=== PATIENT | female | born 1955 | race Caucasian/White ===

== ENCOUNTER 2016-10-20 04:26 | Observation (INO) | payer BC ==
--- NOTE | ~2016-10-20 | HP ---
History And Physical [place] [id number] [facility] [place]. [address] NAME: BRIAN RAJAN : 55 STATUS : ADM [place] PAT#: [id number] AGE: 61 ADM/REG DATE : 10/20/16 MR#: [id number] REPORT SERV DATE: 10/20/16 DICTATED BY: BAIRON RIVERA DATE: 10/20/16 REPORT STATUS : Draft TRANSCRIBED BY: MODRahat DATE: 10/20/16 DATE OF ADMISSION: 10/20/2016 CHIEF COMPLAINT: Unable to swallow. HISTORY OF PRESENT ILLNESS: The patient is a 61-year-old white female, relatively healthy, presented to [facility]'s emergency room early this morning where CT scan revealed some compromise of her airway due to significant edema of the oropharynx, so she was back to be admitted to ICU. Dr. Wayne saw the patient in consultation and Dr. Camp of ENT saw the patient and performed endoscopy. She was given some IV Solu-Medrol in the emergency room and then when Dr. Camp saw her, the airway compromise was not as bad as it looked on the CT scan, so she has been referred for further observation. This patient reported that over the last three to four days, she has had significant sore throat. She went to see her primary care physician, saw the nurse practitioner there, and said this was viral. She was given some cough drops and asked to take Tylenol and ibuprofen. Then, she got worse in the next two days and so, she saw the physician's nurse practitioner at her workplace and they said it was viral. Strep throat was done during that time and it was negative, but her symptoms continued to worsen where she could not swallow, so she came to the emergency room. REVIEW OF SYSTEMS: Otherwise has been negative. PAST MEDICAL HISTORY: Significant for ulcerative colitis, followed by Dr. Richie Boss, currently in remission. PAST SURGICAL HISTORY: Unremarkable. ALLERGIES: NO KNOWN DRUG ALLERGIES. HOME MEDICATIONS: None prior to this admission. SOCIAL HISTORY: She does not smoke. Occasionally drinks alcohol, red wine. Does not use any illicit substances. Employed at [employer]. FAMILY HISTORY: Significant for ulcerative colitis, diabetes, and heart disease in the family. PHYSICAL EXAMINATION: GENERAL: White female, lying on a gurney, appears to be in no obvious respiratory distress. She is awake, alert. She is oriented. VITAL SIGNS: Blood pressure is 170/90, which has since improved after coming to the emergency room. Temperature is 98.7, pulse 104, which has since improved as well. Saturation 96%. HEENT: Head is normocephalic, atraumatic. Pupils are equal, round, and reactive to light. Extraocular muscles are intact. Sclerae anicteric. Conjunctivae normal. Oropharynx without lesion. Tongue protrusion midline. Uvula midline. History And Physical [address] [address] NAME: BRIAN RAJAN : 55 STATUS : ADM [place] PAT#: [id number] AGE: 61 ADM/REG DATE : 10/20/16 MR#: [id number] REPORT SERV DATE: 10/20/16 DICTATED BY: BAIRON RIVERA DATE: 10/20/16 REPORT STATUS : Draft TRANSCRIBED BY: DAVIS DATE: 10/20/16 NECK: Supple. No jugular venous distention. No carotid bruits or thyromegaly is appreciated. She is tender to palpation over the neck area. No lymphadenopathy in the neck is palpable. HEART: Regular rate and rhythm. No murmurs, rubs, or gallops are heard. PMI nondisplaced. LUNGS: Clear to auscultation, both anteriorly and posteriorly, without rales, rhonchi, wheezing, or consolidation. Mild stridor type of noises over the oropharynx. ABDOMEN: Soft, nontender, good bowel sounds. No rebound or guarding. No organomegaly. EXTREMITIES: Without cyanosis, clubbing, or edema. MUSCULOSKELETAL: Normal. NEUROLOGIC: Normal. LABORATORY DATA: Sodium is 142, potassium 3.4, chloride 104, bicarb 26, BUN 9, creatinine 0.65, glucose of 93. Liver function studies are completely normal. Total albumin and total protein are normal. CBC: White count is 14.2, hemoglobin of 14.1, hematocrit of 42, platelet count is 417,000. No bandemia. DIAGNOSTIC DATA: CT of the neck without contrast, asymmetric swelling localized in the region of the left tonsil, this may represent infection, tumor cannot be excluded. Recommend either repeat CT or MRI for further evaluation. IMPRESSION: 1. Severe oropharyngitis with swallowing difficulty. 2. Ulcerative colitis. Currently in remission. PLAN: The patient will be admitted for observation. This patient has already been seen by Dr. Camp and a pharyngoscope has been done. She has been given IV Solu-Medrol, which we will continue. 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 We will check routine labs. Follow up with Dr. Camp at discharge in 7-10 days. ALIZE/DAVIS Bairon Rivera M.D. / [id number] CC: MD Irving Stahl M.D.
--- NOTE | ~2016-10-20 | CN ---
Consultation Report [facility] [address] [place]. [address] NAME: BRIAN RAJAN : 55 STATUS : ADM [place] PAT#: [id number] AGE: 61 ADM/REG DATE : 10/20/16 MR#: [id number] REPORT SERV DATE: 10/20/16 DICTATED BY: LORETTA HUGHES DATE: 10/20/16 REPORT STATUS : Draft TRANSCRIBED BY: MODL DATE: 10/20/16 CONSULTATION DATE OF CONSULTATION: 10/20/2016 SERVICE: Otolaryngology. DIAGNOSIS: Airway narrowing stridor. HISTORY OF PRESENT ILLNESS: This is a 61-year-old female, who early in the week presented to her primary care doctor with increasing sore throat, had been swabbed several times, was told she had a viral illness, was not treated. She went reportedly again and was swabbed three days in a row. Per the patient, never turned up positive for strep. She got progressively worse until last night. She was unable to swallow water pills. Came to the emergency room. During her workup there, she was found to have a very narrowed airway due to soft tissue swelling of the oropharynx. I was consulted for evaluation and management. She does report that she had fevers over the past week as well. She does not have any history of tonsillectomy. No history of recurrent strep tonsillitis. PAST MEDICAL HISTORY: She has none. PAST SURGICAL HISTORY: She had a lymph node excised by Dr. Michael Mcdonough. She says approximately 20 years ago and it was a benign diagnosis. She is not currently taking any medications and has no known drug allergies. Reviewing the labs, she had a white count of 12 which is the most notable lab. I reviewed the images of her CT scan, which showed a gross swelling of the oropharynx in a circumferential fashion. The CT scan was not contrasted, but there was not felt to be any type of fluid collection which I agree with. PHYSICAL EXAMINATION: GENERAL: The patient was sleeping in the supine position. Had no stridor. She was wearing a nasal cannula. She was in no distress. When I turned the light on and woke her, she was fully appropriate and aware and not having any difficulty speaking or swallowing. HEENT: On physical examination of her ears, auditory canals, and tympanic membranes, she did have a slight serous effusion in the right ear, otherwise normal exam. No external nasal deformities internally. Septum and turbinates are normal. Oral cavity was pink and moist. There were no lesions on the buccal mucosa, floor of mouth, or oral tongue. There was no edema in the floor of mouth. There was erythema in the posterior pharynx and appeared to be white. Whitish drainage around the tonsil area. Palpation of the face was soft. Palpation of the neck was soft. There was no abnormal lymphadenopathy present. The thyroid gland was nontender. Consultation Report [facility] [address] [place]. [address] NAME: BRIAN RAJAN : 55 STATUS : ADM [place] PAT#: [id number] AGE: 61 ADM/REG DATE : 10/20/16 MR#: [id number] REPORT SERV DATE: 10/20/16 DICTATED BY: LORETTA HUGHES DATE: 10/20/16 REPORT STATUS : Draft TRANSCRIBED BY: DAVIS DATE: 10/20/16 PROCEDURE NOTE: After witnessed informed consent was obtained, the patient's left nasal cavity was cannulated with a soft flexible fiberoptic scope that was coated in lidocaine jelly. It was passed easily back to the nasopharynx. Along way, there was quite a bit of drainage coming from the sinuses. It was yellow-green in nature. The drainage continued onto the back of the throat. The patient had grossly erythematous and swollen tonsils. Lingual tonsils were slightly enlarged. She had a widely patent oropharynx. Her larynx appeared uninvolved. She had good adduction and abduction of her vocal cords. She tolerated the procedure well. There were no complications. ASSESSMENT: Acute pharyngitis. Given the severity of her initial presentation, I think it is prudent to have her on IV Unasyn for 24 hours. She continues to markedly improve on Unasyn and steroids. RECOMMENDATION: We will have her discharged home in the morning on a total of a 10-day course of Augmentin. I do not see any need for surgical intervention. I do not believe she needs intensive care unit observation at this time since she has rapidly improved with her IV steroids. Outpatient followup would be considered with me in 7-10 days after discharge. GUILLAUME/DAVIS Loretta Hughes MD / [id number] CC: MD Irving Stahl M.D.
--- NOTE | ~2016-10-20 | DS ---
Discharge Summary [facility] [address] [place] [address] NAME: BRIAN RAJAN : 55 STATUS : ADM [place] PAT#: [id number] AGE: 61 ADM/REG DATE : 10/20/16 MR#: [id number] REPORT SERV DATE: 10/21/16 DICTATED BY: Dione LOPEZ DATE: 10/21/16 REPORT STATUS : Draft TRANSCRIBED BY: DAVIS DATE: 10/21/16 ADMISSION DATE: 10/20/2016 DISCHARGE DATE: 10/21/2016 DIAGNOSIS AT DISCHARGE: Acute pharyngitis. CONSULT: Dr. Camp, ENT. PROCEDURE: Nasopharyngoscopy. BRIEF HOSPITAL COURSE: A 61-year-old female, who admitted with severe oropharyngeal swelling secondary to acute pharyngitis, started on IV antibiotics and IV steroids with a consult to ENT. The patient did have a nasopharyngoscopy which showed significant swelling but protection of the airway. Recommendations were for an overnight stay on IV antibiotics and IV steroids. The following day, the patient was markedly improved with significant decrease in her swelling. The patient is able to tolerate an oral diet without difficulty. Follow up evaluation by ENT suggested discharge home with 10 days of oral Augmentin. The patient will continue her home medications per med reconciliation form. She will follow up with her primary care provider in approximately two weeks. No additional steroid will be given as an outpatient as she has already reached maximal benefit. VAISHNAVI/DAVIS Dione Lopez M.D. / [id number] CC: Toby Camp MD
[2016-10-20 04:37] LABS: BASOPHILS 0.1 %; BASOPHILS ABSOLUTE 0.02 10/3/uL (0.0-0.16); EOSINOPHILS 1.1 %; EOSINOPHILS ABSOLUTE 0.15 10/3/uL (0.0-0.53); HEMATOCRIT 42.1 % (36.0-48.0); HEMOGLOBIN 14.1 g/dL (12.0-16.0); IMMATURE GRANULOCYTES 0.4 %; IMMATURE GRANULOCYTES ABSOLUTE 0.05 10/3/uL (0.0-0.11); LYMPHOCYTES 9.9 %; LYMPHOCYTES ABSOLUTE 1.41 10/3/uL (0.67-4.30); MEAN CORPUS HGB CONC 33.5 g/dL (32.0-36.0); MEAN CORPUSCULAR HEMOGLOB 29.9 pg (26.0-34.0); MEAN CORPUSCULAR VOLUME 89.4 fL (80-100); MEAN PLATELET VOLUME 9.1 fL (9.2-13.0); MONOCYTES 6.2 %; MONOCYTES ABSOLUTE 0.88 10/3/uL (0.21-1.20); NEUTROPHILS 82.3 %; NEUTROPHILS ABSOLUTE 11.73 10/3/uL (2.02-8.40); PLATELET COUNT 417 10/3/uL (150-400); RBC DISTRIBUTION WIDTH 12.9 % (12.0-16.0); RED CELL COUNT 4.71 10/6/uL (4.0-5.6)
[2016-10-20 04:45] LABS: ER CBC TAT 0 Hrs 16 Mins; MANUAL DIFF NO %; WHITE BLOOD CELLS 14.2 10/3/uL (4.5-10.5)
[2016-10-20 04:53] LABS: ALBUMIN 3.7 G/DL (3.5-5.0); ALKALINE PHOSPHATASE 104 U/L (45-117); CALCIUM, SERUM 9.2 MG/DL (8.5-10.4); CHLORIDE, SERUM 104 MMOL/L (96-112); CO2 (CARBON DIOXIDE) 26 MMOL/L (24-34); CREATININE 0.65 MG/DL (0.55-1.02); GFR AFRICAN AMERICAN 111 ML/MIN (>=60); GFR NON AFRICAN AMERICAN 96 ML/MIN (>=60); SGOT(AST) 7 U/L (5-40); SGPT(ALT) 17 U/L (5-65); SODIUM, SERUM 142 MMOL/L (135-148); TOTAL PROTEIN 7.8 G/DL (6.0-8.5)
[2016-10-20 04:57] LABS: A/G RATIO 0.9 (0.7-1.9); BUN (BLOOD UREA NITROGEN) 9 MG/DL (6-23); GLOBULIN 4.1 G/DL (2.5-4.1); GLUCOSE, SERUM 93 MG/DL (60-99); POTASSIUM, SERUM 3.4 MMOL/L (3.5-5.3); TOTAL BILIRUBIN 1.1 MG/DL (0-1.2)
[2016-10-21 05:20] LABS: BASOPHILS 0.1 %; BASOPHILS ABSOLUTE 0.01 10/3/uL (0.0-0.16); EOSINOPHILS 0 %; HEMATOCRIT 40.8 % (36.0-48.0); HEMOGLOBIN 13.7 g/dL (12.0-16.0); IMMATURE GRANULOCYTES 0.2 %; IMMATURE GRANULOCYTES ABSOLUTE 0.03 10/3/uL (0.0-0.11); LYMPHOCYTES 7.7 %; LYMPHOCYTES ABSOLUTE 0.97 10/3/uL (0.67-4.30); MEAN CORPUS HGB CONC 33.6 g/dL (32.0-36.0); MEAN CORPUSCULAR HEMOGLOB 30.1 pg (26.0-34.0); MEAN CORPUSCULAR VOLUME 89.7 fL (80-100); MEAN PLATELET VOLUME 9.7 fL (9.2-13.0); MONOCYTES 1.4 %; MONOCYTES ABSOLUTE 0.18 10/3/uL (0.21-1.20); NEUTROPHILS 90.6 %; NEUTROPHILS ABSOLUTE 11.39 10/3/uL (2.02-8.40); PLATELET COUNT 447 10/3/uL (150-400); RBC DISTRIBUTION WIDTH 13.1 % (12.0-16.0); RED CELL COUNT 4.55 10/6/uL (4.0-5.6); WHITE BLOOD CELLS 12.6 10/3/uL (4.5-10.5)
[2016-10-21 05:23] LABS: MANUAL DIFF NO %
[2016-10-21] MEDS ORDERED: AUG875 PO (13:23)
[2016-11-13] MEDS ORDERED: *DENIES (16:19)
== END 2016-10-21 13:32 | disposition home or self-care (01) ==
LOC: ER 04:26 → ER/OF 05:20 → CDU1 13:37 → CDU2 15:42
PROVIDERS: Internal Medicine; Specialist
DX: J02.9 Acute pharyngitis, unspecified (principal); K51.90 Ulcerative colitis, unspecified, without complications
CPT/HCPCS: 70490; 80053; 85025; 87070; 87880; 90686; 96372; 96374; 96375; 96376; 99291; G0008; G0378; J0295; J1170; J2405; J2930